=== PATIENT | female | born 1970 | race Caucasian/White ===

== ENCOUNTER 2021-03-06 07:26 | Emergency (ER) | payer OTHER ==
[~2021-03-06] VITALS: Ht 162.6 cm; Wt 90.3 kg
[~2021-03-06 07:26] MED LIST: ALLEGRA-D 12 H1 EACH PO
[2021-03-06 08:00] LABS: BASOPHIL 0.7 % (0-2); EOSINOPHIL 2.1 % (0-5); HCT 40.9 % (37.0-47.0); HGB 12.9 g/dl (12.5-16.0); LYMPHOCYTE 34.3 % (15-48); MCH 27.4 pg (25.0-31.0); MCHC 31.5 g/dL (32.0-36.0); MCV 86.8 fL (78.0-100.0); MONOCYTE 7.1 % (0-12); MPV 10.3 fL (6.0-9.5); NEUTROPHIL 55.5 % (41-80); NRBC 0; PLT 327 K/uL (150-400); RBC 4.71 M/uL (4.20-5.40); RDW 12.9 % (11.5-14.0); WBC 7.6 K/uL (4.0-10.5)
[2021-03-06 08:12] LABS: INR 0.91 (0.9-1.2); PROTHROMBIN TIME 11.7 SECONDS (11.8-13.4); PTT 25.5 SECONDS (24.4-34.7)
[2021-03-06 08:20] LABS: ALBUMIN 3.3 g/dL (3.4-5.0); BILIRUBIN - TOTAL 0.2 mg/dL (0.2-1.0); BUN/CREAT RATIO (CALC) 24.5 RATIO; CREATININE 0.49 mg/dL (0.51-0.95); GLOBULIN (CALCULATION) 4.6 g/dL; POTASSIUM 4.3 mmol/L (3.5-5.1); TOTAL PROTEIN 7.9 g/dL (6.4-8.2)
[2021-03-06 10:05] LABS: C-REACTIVE PROTEIN 1.7 mg/dL (<=0.90)
== END 2021-03-06 12:55 | disposition home or self-care (01) ==
LOC: FER 07:26
PROVIDERS: Emergency Medicine
DX: R07.89 Other chest pain (principal); I10 Essential (primary) hypertension; E78.5 Hyperlipidemia, unspecified; E11.9 Type 2 diabetes mellitus without complications; Z20.822 Contact with and (suspected) exposure to COVID-19; Z91.041 Radiographic dye allergy status; Z79.84 Long term (current) use of oral hypoglycemic drugs; Z79.899 Other long term (current) drug therapy
CPT/HCPCS: 36415; 71045; 80053; 82728; 83615; 84484; 85025; 85379; 85610; 85730; 86140; U0002

== ENCOUNTER 2021-04-09 11:01 | Emergency (ER) | payer OTHER ==
[2021-04-09 14:52] LABS: INFLUENZA A NAA NEGATIVE (NEGATIVE)
[2021-04-09 15:12] LABS: CORONAVIRUS 2019 SARS-COV-2 POSITIVE (NEGATIVE)
[2021-04-09 16:23] LABS: BASOPHIL 0.4 % (0-2); EOSINOPHIL 0 % (0-5); HCT 44.1 % (37.0-47.0); HGB 14.5 g/dl (12.5-16.0); LYMPHOCYTE 30.2 % (15-48); MCH 27.4 pg (25.0-31.0); MCHC 32.9 g/dL (32.0-36.0); MCV 83.2 fL (78.0-100.0); MONOCYTE 9.1 % (0-12); MPV 11.6 fL (6.0-9.5); NEUTROPHIL 59.9 % (41-80); NRBC 0; PLT 169 K/uL (150-400); WBC 5.4 K/uL (4.0-10.5)
[2021-04-09 16:32] LABS: BUN/CREAT RATIO (CALC) 26.2 RATIO; CREATININE 0.65 mg/dL (0.51-0.95); POTASSIUM 3.8 mmol/L (3.5-5.1)
[2021-04-09 20:34] LABS: BUN/CREAT RATIO (CALC) 26.9 RATIO; CREATININE 0.52 mg/dL (0.51-0.95)
[2021-04-09] MEDS ORDERED: PHENERGAN25 M1 PO (21:08)
[2021-04-09] MEDS ORDERED: ONDANSETRON ODT4 MG PO (21:08)
== END 2021-04-09 21:28 | disposition home or self-care (01) ==
LOC: FER 11:01
PROVIDERS: Emergency Medicine; Internal Medicine
DX: U07.1 COVID-19 (principal); J12.82 Pneumonia due to coronavirus disease 2019; E86.0 Dehydration; E86.1 Hypovolemia; E87.1 Hypo-osmolality and hyponatremia; E11.9 Type 2 diabetes mellitus without complications; I10 Essential (primary) hypertension; Z91.041 Radiographic dye allergy status
CPT/HCPCS: 36415; 71045; 80048; 83690; 83880; 84484; 85025; 93005; J2405; J7030; U0002